=== PATIENT | female | born 1990 | race Caucasian/White ===

== ENCOUNTER 2016-09-17 11:08 | Inpatient (IN) ==
[2016-09-17] MEDS ORDERED: KEFZOL 1 GM/D5W 50 ML IV PRN (20:20)
[2016-09-17] MEDS ORDERED: ZOFRAN IV PRN (20:20)
[2016-09-17] MEDS ORDERED: PEPCID IV PRN (20:20)
[2016-09-17] MEDS ORDERED: AMPICILLIN 2 GM/NS 100 ML IV ONE (20:20)
[2016-09-17] MEDS ORDERED: CYTOTEC PO ONE (20:20)
[2016-09-17] MEDS ORDERED: STADOL IV PRN ×3 (20:20)
[2016-09-17] MEDS ORDERED: PEPCID PO PRN (20:20)
[2016-09-17] MEDS ORDERED: TYLENOL PO PRN (20:20)
[2016-09-17] MEDS ORDERED: AMBIEN PO PRN (20:20)
[2016-09-17] MEDS ORDERED: BRETHINE SUBQ PRN (20:20)
[2016-09-17] MEDS ORDERED: PITOCIN 30 UNITS/LR 500 ML IV SCH (20:30)
[2016-09-17] MEDS: LR 1,000 ML IV SCH (21:05)
[2016-09-17 21:20] LABS: UR AMPHETAMINES QUAL NONE DETECTED (NONE DETECT); UR BARBITUATES QUAL NONE DETECTED (NONE DETECT); UR BENZODIAZEPIN QUAL NONE DETECTED (NONE DETECT); UR CANNABINOIDS QUAL NONE DETECTED (NONE DETECT); UR COCAINE QUAL NONE DETECTED (NONE DETECT); UR MDMA QUAL NONE DETECTED (NONE DETECT); UR METHADONE QUAL NONE DETECTED (NONE DETECT); UR METHAMPHETAMINE QUAL NONE DETECTED (NONE DETECT); UR OPIATES QUAL NONE DETECTED (NONE DETECT); UR OXYCODONE QUAL NONE DETECTED (NONE DETECT); UR PCP QUAL NONE DETECTED (NONE DETECT); UR TCA QUAL NONE DETECTED (NONE DETECT)
[2016-09-17 21:31] LABS: MANUAL DIFF NEEDED? NO
[2016-09-17 21:33] LABS: BASO% 0.1 % (0.0-0.8); EOS# 0.04 X1000 (0.0-0.7); EOS% 0.4 % (0.0-10.0); HEMATOCRIT 33.3 % (37.0-47.0); HEMOGLOBIN 10.7 g/dL (12.0-16.0); IMM GRAN# 0.08 X1000 (0.0-0.04); IMM GRAN% 0.7 % (0.0-0.5); LYMPH# 2.39 X1000 (1.2-3.4); LYMPH% 21.5 % (20.5-51.1); MCH 28.1 PG (27-31); MCHC 32.1 g/dL (33-37); MCV 87.4 FL (81-99); MONO# 0.97 X1000 (0.11-0.59); MONO% 8.7 % (1.7-9.3); MPV 12.2 FL (7.4-10.4); NEUT% 68.6 % (42.2-75.2); PLT 155 X1000 (130-400); RBC 3.81 XMIL (4.2-5.4)
[2016-09-18] MEDS ORDERED: CYTOTEC PO SCH (00:20)
[2016-09-18] MEDS: AMPICILLIN 1 GM/NS 50 ML IV SCH ×4 (01:30→13:17)
[2016-09-18] MEDS ORDERED: FENTANYL-BUPIV-NS 2 MCG-0.1% 200 ML EPIDURAL PRN (07:11)
[2016-09-18] MEDS ORDERED: MARCAINE 0.25% PF ONE (07:16)
[2016-09-18] MEDS: LR 1,000 ML IV SCH ×2 (08:23→17:39)
[2016-09-18] MEDS ORDERED: XYLOCAINE-MPF 1% ONE (15:04)
[2016-09-18] MEDS ORDERED: NORCO-5 PO PRN (16:35)
[2016-09-18] MEDS ORDERED: HYDROXYZINE IM PRN (16:35)
[2016-09-18] MEDS ORDERED: M-M-R II VACCINE SUBQ ONE (16:35)
[2016-09-18] MEDS ORDERED: XYLOCAINE-MPF 1% INJ PRN (16:35)
[2016-09-18] MEDS ORDERED: MINERAL OIL MISC PRN (16:35)
[2016-09-18] MEDS ORDERED: BENADRYL PO PRN (16:35)
[2016-09-18] MEDS ORDERED: PITOCIN 30 UNITS/LR 500 ML IV ONE (16:35)
[2016-09-18] MEDS ORDERED: HYDROXYZINE PO PRN (16:35)
[2016-09-18] MEDS ORDERED: PITOCIN 20 UNITS/LR 1,000 ML IV SCH (16:35)
[2016-09-18] MEDS ORDERED: BOOSTRIX VACCINE IM ONE (16:35)
[2016-09-18] MEDS ORDERED: AMBIEN PO PRN (16:35)
[2016-09-18] MEDS ORDERED: PERI MEDS (DERMOPLAST/NUPERCAINAL/TUCKS) MISC PRN (16:35)
[2016-09-18] MEDS ORDERED: PITOCIN IM PRN (16:35)
[2016-09-18] MEDS ORDERED: BENADRYL IV PRN (16:35)
[2016-09-18] MEDS ORDERED: CYTOTEC PO PRN (16:35)
--- NOTE | 2016-09-18 18:35 | OPERATIVE NOTE ---
PROCEDURE DATE: 09/18/2016 PRE DELIVERY DIAGNOSES: 1. Intrauterine at 39 and 6. 2. Rubella nonimmune. 3. GBS bacteriuria. POST DELIVERY DIAGNOSES: 1. Intrauterine at 39 and 6. 2. Rubella nonimmune. 3. GBS bacteriuria. PROCEDURE: Vaginal delivery. PHYSICIAN: Lenard. ANESTHESIA: Epidural with Dr. Paris. FINDINGS: Viable male , 8, 9 Apgars, 8 pounds 3 ounces. No lacerations or tears. Three- vessel cord. Placenta spontaneous, intact. All counts were correct. Please refer to Ms. Jeffrey's records. She was a 25-year-old, 3, para 2, with estimated date of delivery of 09/19/2016, who was admitted last night for labor induction. She received Cytotec and antibiotics overnight. This morning, she received epidural anesthesia, was started on Pitocin, was artificially ruptured. She made slow and steady progress throughout the day. Began pushing. Soon after crowned, at which point the bed was broken down, and she was prepped and draped. With continued pushing, she delivered a viable male infant, occiput anterior, over an intact perineum. Once head delivered, shoulders and rest of the body delivered easily. Infant placed on mother's abdomen. Cord was doubly clamped and cut, and the infant was taken over by nursery personnel. Cord was inspected and found to be 3 vessels. Then gentle traction on the cord resulted in delivery of an intact placenta after approximately 3 minutes. It was discarded. Inspection of the vagina and perineum did not reveal any lacerations. There were no clots or foreign material. Estimated blood loss 100 mL. All counts correct x2. Expect routine .
[2016-09-18] MEDS: NORCO-10 PO PRN (19:29)
[2016-09-18] MEDS: MOTRIN PO PRN (19:29)
[2016-09-18] MEDS ORDERED: PERICOLACE PO SCH (21:00)
[2016-09-19 05:57] LABS: MANUAL DIFF NEEDED? NO
[2016-09-19 06:04] LABS: BASO% 0.2 % (0.0-0.8); EOS# 0.08 X1000 (0.0-0.7); EOS% 0.7 % (0.0-10.0); HEMATOCRIT 32.5 % (37.0-47.0); HEMOGLOBIN 10.4 g/dL (12.0-16.0); IMM GRAN# 0.07 X1000 (0.0-0.04); IMM GRAN% 0.7 % (0.0-0.5); LYMPH# 2.69 X1000 (1.2-3.4); LYMPH% 25.1 % (20.5-51.1); MCH 28.4 PG (27-31); MCV 88.8 FL (81-99); MONO# 0.96 X1000 (0.11-0.59); MPV 12.3 FL (7.4-10.4); NEUT% 64.3 % (42.2-75.2); PLT 134 X1000 (130-400); RBC 3.66 XMIL (4.2-5.4)
[2016-09-19] MEDS: MOTRIN PO PRN ×2 (07:20→16:08)
[2016-09-19] MEDS: NORCO-10 PO PRN ×2 (07:20→16:08)
[2016-09-19] MEDS: HEMOCYTE PLUS CAPSULE PO SCH (09:33)
[2016-09-19] MEDS: PRECARE PO SCH (09:33)
--- NOTE | 2016-09-19 15:18 | PROGRESS NOTE ---
PROCEDURE DATE: 09/19/2016 SUBJECTIVE: She is day 1. Ms. Watson is without complaints this morning. She is tolerating p.o. She has ambulated and voided and has no complaints. OBJECTIVE: Vital Signs: Blood pressure 110/75, temperature is 97.3 degrees, pulse rate 95, respiratory rate 18. She is alert and cooperative, in no distress. Neck is supple. Lungs clear. Heart regular sinus rhythm. Abdomen is distended. Uterus is firm and nontender. Extremities: +2 lower extremity edema. Post-delivery hemoglobin and hematocrit of 10.4/32.5. Expect routine . Discharge in the morning.
[2016-09-20] MEDS: NORCO-10 PO PRN (03:25)
[2016-09-20] MEDS: MOTRIN PO PRN (03:25)
[2016-09-20 07:57] VITALS: BP 130/79
[2016-09-20] MEDS: HEMOCYTE PLUS CAPSULE PO SCH (09:03)
[2016-09-20] MEDS: PRECARE PO SCH (09:03)
[2016-09-20] MEDS ORDERED: DEPO-PROVERA IM ONE (11:03)
--- NOTE | 2016-09-20 21:23 | DISCHARGE SUMMARY ---
ADMISSION DATE: 09/17/2016 DISCHARGE DATE: 09/20/2016 ADMITTING DIAGNOSIS: 1. Term , for labor induction. 2. Group B strep bacteriuria, rubella nonimmune. DISCHARGE DIAGNOSES: 1. Term , for labor induction. 2. Group B strep bacteriuria, rubella nonimmune. PROCEDURE: Vaginal delivery. CONDITION: Stable. DIET: As tolerated. ACTIVITY: Routine . MEDICATIONS: [place] 5, Motrin 800, vitamins with iron and stool softeners. FOLLOWUP: She is to follow up in 6 weeks at the office and she is to get a shot of Depo-Provera before leaving for contraception. HOSPITAL COURSE: Please refer to Ms. Jeffrey's records and delivery note. She was admitted for labor induction. She had a successful vaginal delivery. She has done well afterwards. Currently day 2. Alert and cooperative, desiring discharge. PHYSICAL EXAMINATION: Vital Signs: Stable. She is afebrile. She is alert and cooperative, in no distress. Neck: Supple. Lungs: Clear. Heart: Regular sinus rhythm. Abdomen: Slightly distended. Uterus is firm and nontender. Extremities: No cyanosis, clubbing, or edema in her extremities. LABORATORY: Hemoglobin stable. DISCHARGE INSTRUCTIONS: We will discharge with above instructions.
== END 2016-09-20 12:15 | disposition home or self-care (01) | DRG 775 ==
LOC: P.LD 19:40
PROVIDERS: ADMIT Obstetrics & Gynecology; ATTEND Obstetrics & Gynecology
PROC: 10E0XZZ Delivery of Products of Conception, External Approach (ICD-10-PCS; principal; 2016-09-18)
PROC: 3E033VJ Introduction of Other Hormone into Peripheral Vein, Percutaneous Approach (ICD-10-PCS; 2016-09-18)
PROC: 10907ZC Drainage of Amniotic Fluid, Therapeutic from Products of Conception, Via Natural or Artificial Opening (ICD-10-PCS; 2016-09-18)
DX: O99.824 Streptococcus B carrier state complicating childbirth (principal); Z28.3 Underimmunization status; Z37.0 Single live birth; Z3A.39 39 weeks gestation of pregnancy
CPT/HCPCS: 36415; 59025; 85025; 86592; G0477; J0290; J1050; J2590; J7120; S0020